=== PATIENT | female | born 1955 | race Caucasian/White ===

== ENCOUNTER 2017-08-05 13:55 | Inpatient (IN) | payer OTHER ==
[~2017-08-05] VITALS: Ht 175.3 cm; Wt 232.0 kg
[2017-08-05] MEDS ORDERED: ASPirin 81 mg TAB PO ONE (14:15)
[2017-08-05 14:43] LABS: Basophils # (auto) 0.1 uL; Basophils % (auto) 0.7 % (0.0-2.0); Eosinophils # (auto) 0 uL; Eosinophils % (auto) 0.5 % (0.0-7.0); Hematocrit 37.5 % (36.0-46.0); Hemoglobin 11.8 g/dL (12.2-16.2); Lymphocytes # (auto) 1.2 uL; Lymphocytes % (auto) 12.3 % (10.0-50.0); Mean Corpuscular Hemoglobin 28.2 pg (28.0-32.0); Mean Corpuscular Hgb Conc. 31.5 g/dL (32.0-36.0); Mean Corpuscular Volume 89.5 fL (80.0-100.0); Mean Platelet Volume 8.1 fL (6.9-10.8); Monocytes # (auto) 0.6 uL; Monocytes % (auto) 5.6 % (0.0-12.0); Neutrophils % (auto) 80.9 % (37.0-80.0); Platelet Count (auto) 205 10^3/uL (140-450); Red Cell Distribution Width 14.8 % (11.8-14.3); White Blood Cell 9.9 10^3/uL (4.4-10.8)
[2017-08-05 15:02] LABS: INR 0.93 (0.9-1.15); Partial Thromboplastin Time 24.8 sec (22.64-33.71); Prothrombin Time 10.1 sec (9.37-12.3)
[2017-08-05 15:04] LABS: B-Type Natriuretic Peptide 456.08 pg/mL (0-100)
[2017-08-05 15:06] LABS: Albumin 2.7 g/dL (3.4-5.0); BUN/Creatinine Ratio 41.8; Bilirubin, Total 0.4 mg/dL (0.2-1.0); Calcium 9.3 mg/dL (8.5-10.1); Magnesium 2.5 mg/dL (1.6-2.6); Total Protein 8.2 g/dL (6.4-8.2)
[2017-08-05 15:07] LABS: Temperature: 23.1 C (20.0-25.0)
[2017-08-05 15:22] LABS: Allen Test Yes; Base Excess 0.6 mmol/L (-2.0-2.0); Blood 02Sat 84.3 % (96-100); Blood COHb 1.3 % (0.5-1.5); Blood MetHb 0.3 % (0.0-1.5); HCO3 30.8 mmol/L (22-26.0); HHb 15.4 % (0.0-5.0); MODE NASAL CANNULA; PCO2 80.7 mmHg (35.0-45.0); PCO2(T) 80.7 mmHg (35.0-45.0); PO2 51.6 mmHg (80.0-100.0); PO2(T) 51.6 mmHg (80.0-100.0); Sample Type Arterial; pH 7.199 (7.350-7.450)
[2017-08-05] MEDS ORDERED: MORPHINE SULF INJ 2 MG/ML SYRINGE 1ML IV PRN ×2 (15:45)
[2017-08-05] MEDS ORDERED: ACETAMINOPHEN 325 MG TAB PO PRN (15:45)
[2017-08-05] MEDS ORDERED: TEMAZEPAM 15 MG CAP PO PRN (15:45)
[2017-08-05] MEDS ORDERED: NITROGLYCERIN 0.4 MG SL TAB SL PRN (15:45)
[2017-08-05] MEDS ORDERED: ONDANSETRON HCL 4 MG/2 ML VIAL IV PRN (15:45)
[2017-08-05] MEDS ORDERED: DOCUSATE SOD 100 MG CAP PO PRN (15:45)
[2017-08-05] MEDS ORDERED: ATEN50TA PO (16:07)
[2017-08-05] MEDS ORDERED: CETI10TA80 PO (16:07)
[2017-08-05] MEDS ORDERED: DOXE25CA2 PO (16:07)
[2017-08-05] MEDS ORDERED: AMLO5TAB2 PO (16:07)
[2017-08-05] MEDS ORDERED: INSREG3 SUBCUT (16:07)
[2017-08-05] MEDS ORDERED: INSDRIP SUBCUT (16:07)
[2017-08-05] MEDS ORDERED: SIMV10TA73 PO (16:07)
[2017-08-05] MEDS ORDERED: MONT10TA34 PO (16:07)
[2017-08-05] MEDS ORDERED: MULTIPLE VITAMIN TAB PO ONE (16:15)
[2017-08-05] MEDS ORDERED: FAMOTIDINE 20 MG TAB PO ONE (16:15)
[2017-08-05] MEDS ORDERED: VANCOMYCIN PER PHARMACY 0 MG IV SCH (16:15)
[2017-08-05] MEDS ORDERED: LEVOFLOXACIN 250MG 50 ML IV ONE (16:15)
[2017-08-05] MEDS ORDERED: ENOXAPARIN SOD 40 MG/0.4 ML SYRINGE SC ONE (16:15)
[2017-08-05] MEDS ORDERED: FUROSEMIDE 40 MG/4 ML VIAL IV ONE (16:15)
[2017-08-05] MEDS ORDERED: DEXTROSE (50%) 50ML SYRG IV PRN (16:15)
[2017-08-05] MEDS: FAMOTIDINE 20 MG TAB PO SCH (16:20)
[2017-08-05] MEDS: POTASSIUM CHL 10 Meq TABLET PO SCH (16:21)
[2017-08-05] MEDS ORDERED: amLODIPine BESYLATE 5 MG TAB PO ONE (16:30)
[2017-08-05] MEDS: InsuLIN REG 1unit/0.01ml Soln (100units/ml) SC SCH ×2 (16:37→22:11)
[2017-08-05] MEDS: ACCU-CHEK COMFORT CURVE STRIP VI SCH ×2 (16:37→22:06)
[2017-08-05] MEDS: FUROSEMIDE 40 MG/4 ML VIAL IV SCH (16:49)
[2017-08-05] MEDS ORDERED: VANCOMYCIN 1,500 MG in SODIUM CHL 0.9% 250 ML IV SCH (18:00)
[2017-08-05] MEDS: INSULIN NPH Isophane (HUMAN) 1unit/0.01ml Susp(100units/ml) SC SCH (18:00)
[2017-08-05 18:27] VITALS: BP 103/61
[2017-08-05 18:39] LABS: Allen Test Yes; Base Excess 1.2 mmol/L (-2.0-2.0); Blood 02Sat 88.6 % (96-100); Blood MetHb 0.3 % (0.0-1.5); HCO3 30.7 mmol/L (22-26.0); HHb 11.3 % (0.0-5.0); MODE HIGH FLOW; O2Hb 87.4 % (94.0-97.0); PCO2 75.4 mmHg (35.0-45.0); PCO2(T) 75.4 mmHg (35.0-45.0); PO2 56.8 mmHg (80.0-100.0); PO2(T) 56.8 mmHg (80.0-100.0); Room 1009-ERT; Sample Type Arterial; pH 7.228 (7.350-7.450)
[2017-08-05] MEDS: ALBUTEROL SULF 2.5 MG/0.5ML(0.5%) NEB SOLN NEB SCH (19:03)
[2017-08-05] MEDS: IPRATROPIUM BROM 0.5 MG/2.5ML INH SOL NEB SCH (19:03)
[2017-08-05] MEDS: VANCOMYCIN 1,500 MG in D5W 5% 250 ML IV SCH (19:38)
[2017-08-05 19:46] VITALS: BP 103/61
[2017-08-05] MEDS: ATENOLOL 25 MG TAB PO SCH (22:00)
[2017-08-05] MEDS ORDERED: ATORVASTATIN 20 MG TAB PO SCH (22:00)
[2017-08-05] MEDS ORDERED: DOXEPIN 25 MG PO SCH (22:00)
[2017-08-05] MEDS: SODIUM CHLOR 0.9% PF (SALINE LOCK) 10ML VIAL IV SCH (22:03)
[2017-08-05 22:05] VITALS: BP 119/57
[2017-08-05] MEDS: MONTELUKAST SODIUM 10 MG TAB PO SCH (22:12)
[2017-08-05 22:20] LABS: Allen Test Yes; Base Excess 0.7 mmol/L (-2.0-2.0); Blood COHb 0.9 % (0.5-1.5); Blood MetHb 0.4 % (0.0-1.5); HCO3 29.2 mmol/L (22-26.0); HHb 9.9 % (0.0-5.0); MODE HIGH FLOW; O2Hb 88.8 % (94.0-97.0); PCO2 66.3 mmHg (35.0-45.0); PCO2(T) 66.3 mmHg (35.0-45.0); PO2 62.1 mmHg (80.0-100.0); PO2(T) 62.1 mmHg (80.0-100.0); Room 1009-ERT; Sample Type Arterial; pH 7.261 (7.350-7.450)
[2017-08-06] VITALS (7 sets, daily range): BP systolic 107–137; BP diastolic 52–69
[2017-08-06] MEDS: IPRATROPIUM BROM 0.5 MG/2.5ML INH SOL NEB SCH ×4 (00:17→18:48)
[2017-08-06] MEDS: ALBUTEROL SULF 2.5 MG/0.5ML(0.5%) NEB SOLN NEB SCH ×4 (00:18→18:48)
[2017-08-06] MEDS: HYDROcodone-ACET 5/325MG TAB PO PRN ×3 (01:24→18:30)
[2017-08-06] MEDS: FAMOTIDINE 20 MG TAB PO SCH ×2 (04:20→16:25)
[2017-08-06] MEDS: POTASSIUM CHL 10 Meq TABLET PO SCH ×2 (04:21→16:25)
[2017-08-06 05:54] LABS: Basophils # (auto) 0.1 uL; Eosinophils # (auto) 0.1 uL; Eosinophils % (auto) 0.9 % (0.0-7.0); Hematocrit 34.2 % (36.0-46.0); Hemoglobin 10.7 g/dL (12.2-16.2); Lymphocytes # (auto) 1.1 uL; Lymphocytes % (auto) 13.8 % (10.0-50.0); Mean Corpuscular Hgb Conc. 31.4 g/dL (32.0-36.0); Mean Platelet Volume 8.7 fL (6.9-10.8); Monocytes # (auto) 0.5 uL; Monocytes % (auto) 5.9 % (0.0-12.0); Neutrophils # (auto) 6.3 uL; Neutrophils % (auto) 78.4 % (37.0-80.0); Platelet Count (auto) 174 10^3/uL (140-450); Red Cell Distribution Width 14.9 % (11.8-14.3)
[2017-08-06] MEDS: FUROSEMIDE 40 MG/4 ML VIAL IV SCH ×2 (06:03→18:25)
[2017-08-06] MEDS: SODIUM CHLOR 0.9% PF (SALINE LOCK) 10ML VIAL IV SCH ×3 (06:03→22:10)
[2017-08-06] MEDS: ACCU-CHEK COMFORT CURVE STRIP VI SCH ×4 (06:03→22:09)
[2017-08-06] MEDS: InsuLIN REG 1unit/0.01ml Soln (100units/ml) SC SCH ×4 (06:12→22:10)
[2017-08-06] MEDS: INSULIN NPH Isophane (HUMAN) 1unit/0.01ml Susp(100units/ml) SC SCH ×2 (06:12→18:29)
[2017-08-06 06:26] LABS: Potassium 4.6 mmol/L (3.5-5.1)
[2017-08-06 06:38] LABS: Albumin 2.2 g/dL (3.4-5.0); BUN/Creatinine Ratio 42.4; Bilirubin, Total 0.5 mg/dL (0.2-1.0); Calcium 8.8 mg/dL (8.5-10.1); Total Protein 6.8 g/dL (6.4-8.2)
[2017-08-06 08:08] LABS: Allen Test Yes; Base Excess 2.1 mmol/L (-2.0-2.0); Blood 02Sat 88.4 % (96-100); Blood COHb 0.8 % (0.5-1.5); Blood MetHb 0.3 % (0.0-1.5); HCO3 29.9 mmol/L (22-26.0); HHb 11.5 % (0.0-5.0); MODE HIGH FLOW; O2Hb 87.4 % (94.0-97.0); PCO2 63.1 mmHg (35.0-45.0); PCO2(T) 63.1 mmHg (35.0-45.0); PO2 57.3 mmHg (80.0-100.0); PO2(T) 57.3 mmHg (80.0-100.0); Room 1009-ERT; Sample Type Arterial; pH 7.294 (7.350-7.450)
[2017-08-06] MEDS ORDERED: LORATADINE 10 MG TAB PO PRN (10:00)
[2017-08-06] MEDS ORDERED: LEVOFLOXACIN 250MG 50 ML IV SCH (10:00)
[2017-08-06] MEDS ORDERED: amLODIPine BESYLATE 5 MG TAB PO SCH (10:00)
[2017-08-06] MEDS: ENOXAPARIN SOD 40 MG/0.4 ML SYRINGE SC SCH (10:34)
[2017-08-06] MEDS: MULTIPLE VITAMIN TAB PO SCH (10:34)
[2017-08-06] MEDS: VANCOMYCIN 1,500 MG in D5W 5% 250 ML IV SCH (12:35)
[2017-08-06] MEDS ORDERED: DOXEPIN HCL 25 MG CAPSULE PO SCH (17:00)
[2017-08-06] MEDS: DOXEPIN HCL 25 MG CAPSULE PO SCH (18:00)
[2017-08-06] MEDS ORDERED: MONTELUKAST SODIUM 10 MG TAB ONE (21:58)
[2017-08-06] MEDS ORDERED: ATENOLOL 50 MG TAB ONE (21:58)
[2017-08-06] MEDS: MONTELUKAST SODIUM 10 MG TAB PO SCH (22:08)
[2017-08-06] MEDS: ATORVASTATIN 20 MG TAB PO SCH (22:08)
[2017-08-06] MEDS: ATENOLOL 25 MG TAB PO SCH (22:13)
[2017-08-07] VITALS (7 sets, daily range): BP systolic 114–124; BP diastolic 53–68
[2017-08-07] MEDS: ALBUTEROL SULF 2.5 MG/0.5ML(0.5%) NEB SOLN NEB SCH ×4 (00:01→18:23)
[2017-08-07] MEDS: IPRATROPIUM BROM 0.5 MG/2.5ML INH SOL NEB SCH ×4 (00:01→18:23)
[2017-08-07] MEDS: FAMOTIDINE 20 MG TAB PO SCH ×2 (05:08→16:17)
[2017-08-07] MEDS: POTASSIUM CHL 10 Meq TABLET PO SCH ×2 (05:09→16:17)
[2017-08-07] MEDS: VANCOMYCIN 1,500 MG in D5W 5% 250 ML IV SCH (05:47)
[2017-08-07] MEDS: FUROSEMIDE 40 MG/4 ML VIAL IV SCH ×2 (05:48→18:04)
[2017-08-07] MEDS: ACCU-CHEK COMFORT CURVE STRIP VI SCH ×4 (05:50→22:15)
[2017-08-07] MEDS: SODIUM CHLOR 0.9% PF (SALINE LOCK) 10ML VIAL IV SCH ×3 (05:50→21:34)
[2017-08-07] MEDS: InsuLIN REG 1unit/0.01ml Soln (100units/ml) SC SCH ×4 (06:29→21:47)
[2017-08-07] MEDS: INSULIN NPH Isophane (HUMAN) 1unit/0.01ml Susp(100units/ml) SC SCH ×2 (06:29→18:04)
[2017-08-07 09:40] LABS: Albumin 2.3 g/dL (3.4-5.0); BUN/Creatinine Ratio 39.6; Calcium 8.5 mg/dL (8.5-10.1); Potassium 4.4 mmol/L (3.5-5.1)
[2017-08-07 09:43] LABS: Bilirubin, Total 0.5 mg/dL (0.2-1.0); Total Protein 7.1 g/dL (6.4-8.2)
[2017-08-07] MEDS ORDERED: LORATADINE 10 MG TAB PO SCH (10:00)
[2017-08-07] MEDS ORDERED: ATENOLOL 50 MG TAB PO SCH (10:00)
[2017-08-07] MEDS ORDERED: MONTELUKAST SODIUM 10 MG TAB PO SCH (10:00)
[2017-08-07] MEDS: MULTIPLE VITAMIN TAB PO SCH (10:08)
[2017-08-07] MEDS: LEVOFLOXACIN 750MG 150 ML IV SCH (10:08)
[2017-08-07] MEDS: amLODIPine BESYLATE 5 MG TAB PO SCH (10:09)
[2017-08-07] MEDS: ENOXAPARIN SOD 40 MG/0.4 ML SYRINGE SC SCH (10:09)
[2017-08-07 10:15] LABS: Basophils # (auto) 0.1 uL; Basophils % (auto) 0.7 % (0.0-2.0); Eosinophils # (auto) 0.1 uL; Eosinophils % (auto) 1.7 % (0.0-7.0); Hematocrit 35.5 % (36.0-46.0); Hemoglobin 11.2 g/dL (12.2-16.2); Lymphocytes # (auto) 1.4 uL; Lymphocytes % (auto) 15.5 % (10.0-50.0); Mean Corpuscular Hgb Conc. 31.4 g/dL (32.0-36.0); Mean Corpuscular Volume 89.2 fL (80.0-100.0); Mean Platelet Volume 8.3 fL (6.9-10.8); Monocytes # (auto) 0.5 uL; Monocytes % (auto) 6.1 % (0.0-12.0); Neutrophils # (auto) 6.6 uL; Platelet Count (auto) 182 10^3/uL (140-450); Red Cell Distribution Width 14.9 % (11.8-14.3); White Blood Cell 8.7 10^3/uL (4.4-10.8)
[2017-08-07] MEDS: DOXEPIN HCL 25 MG CAPSULE PO SCH (18:04)
[2017-08-07] MEDS: ATORVASTATIN 20 MG TAB PO SCH (21:34)
[2017-08-07] MEDS: MONTELUKAST SODIUM 10 MG TAB PO SCH (21:34)
[2017-08-07] MEDS: ATENOLOL 25 MG TAB PO SCH (21:35)
[2017-08-08 02:38] LABS: Allen Test Yes; Base Excess 2.9 mmol/L (-2.0-2.0); Blood 02Sat 88.4 % (96-100); Blood COHb 0.3 % (0.5-1.5); Blood MetHb 0.4 % (0.0-1.5); HCO3 33.1 mmol/L (22-26.0); HHb 11.5 % (0.0-5.0); MODE HIGH FLOW; O2Hb 87.8 % (94.0-97.0); PCO2 85.7 mmHg (35.0-45.0); PCO2(T) 85.7 mmHg (35.0-45.0); PO2 60.4 mmHg (80.0-100.0); PO2(T) 60.4 mmHg (80.0-100.0); Room 0266D; Sample Type Arterial; pH 7.205 (7.350-7.450)
[2017-08-08] MEDS: FUROSEMIDE 40 MG/4 ML VIAL IV SCH ×2 (05:05→18:15)
[2017-08-08] MEDS: POTASSIUM CHL 10 Meq TABLET PO SCH ×2 (05:05→17:10)
[2017-08-08] MEDS: FAMOTIDINE 20 MG TAB PO SCH ×2 (05:06→17:10)
[2017-08-08] MEDS: SODIUM CHLOR 0.9% PF (SALINE LOCK) 10ML VIAL IV SCH ×3 (05:51→22:00)
[2017-08-08] MEDS: ACCU-CHEK COMFORT CURVE STRIP VI SCH ×4 (05:51→22:00)
[2017-08-08] MEDS: INSULIN NPH Isophane (HUMAN) 1unit/0.01ml Susp(100units/ml) SC SCH ×2 (05:59→18:40)
[2017-08-08] MEDS: InsuLIN REG 1unit/0.01ml Soln (100units/ml) SC SCH ×4 (05:59→22:00)
[2017-08-08] MEDS: ALBUTEROL SULF 2.5 MG/0.5ML(0.5%) NEB SOLN NEB SCH ×4 (07:04→18:19)
[2017-08-08] MEDS: IPRATROPIUM BROM 0.5 MG/2.5ML INH SOL NEB SCH ×4 (07:04→18:19)
[2017-08-08 07:12] LABS: Basophils # (auto) 0 uL; Basophils % (auto) 0.4 % (0.0-2.0); Eosinophils # (auto) 0.1 uL; Eosinophils % (auto) 1.4 % (0.0-7.0); Hematocrit 34.2 % (36.0-46.0); Hemoglobin 10.8 g/dL (12.2-16.2); Lymphocytes % (auto) 12.9 % (10.0-50.0); Mean Corpuscular Hemoglobin 28.4 pg (28.0-32.0); Mean Corpuscular Hgb Conc. 31.6 g/dL (32.0-36.0); Mean Platelet Volume 8.9 fL (6.9-10.8); Monocytes # (auto) 0.6 uL; Monocytes % (auto) 7.4 % (0.0-12.0); Neutrophils % (auto) 77.9 % (37.0-80.0); Nucleated Red Blood Cells % 0.1 %; Platelet Count (auto) 156 10^3/uL (140-450); Red Cell Distribution Width 14.8 % (11.8-14.3); White Blood Cell 7.7 10^3/uL (4.4-10.8)
[2017-08-08 07:23] LABS: Calcium 8.6 mg/dL (8.5-10.1); Potassium 4.2 mmol/L (3.5-5.1)
[2017-08-08 07:26] LABS: Albumin 2.3 g/dL (3.4-5.0); BUN/Creatinine Ratio 38.3
[2017-08-08 07:29] LABS: Bilirubin, Total 0.4 mg/dL (0.2-1.0); Total Protein 7.1 g/dL (6.4-8.2)
[2017-08-08 08:00] VITALS: BP 128/60
[2017-08-08] MEDS: HYDROcodone-ACET 5/325MG TAB PO PRN ×3 (08:27→20:27)
[2017-08-08] MEDS: MULTIPLE VITAMIN TAB PO SCH (10:06)
[2017-08-08] MEDS: LEVOFLOXACIN 750MG 150 ML IV SCH (10:06)
[2017-08-08] MEDS: ENOXAPARIN SOD 40 MG/0.4 ML SYRINGE SC SCH (10:07)
[2017-08-08] MEDS: amLODIPine BESYLATE 5 MG TAB PO SCH (10:07)
[2017-08-08 12:00] VITALS: BP 116/54
[2017-08-08 16:00] VITALS: BP 110/58
[2017-08-08] MEDS: PRO-STAT 64 30ML PO SCH (18:00)
[2017-08-08] MEDS: DOXEPIN HCL 25 MG CAPSULE PO SCH (18:16)
[2017-08-08 18:27] VITALS: BP 110/58
[2017-08-08 20:00] VITALS: BP 121/63
[2017-08-08] MEDS: MONTELUKAST SODIUM 10 MG TAB PO SCH (22:52)
[2017-08-08] MEDS: ATENOLOL 25 MG TAB PO SCH (22:52)
[2017-08-08] MEDS: ATORVASTATIN 20 MG TAB PO SCH (22:52)
[2017-08-09] VITALS (8 sets, daily range): BP systolic 105–140; BP diastolic 48–66
[2017-08-09] MEDS: FAMOTIDINE 20 MG TAB PO SCH ×2 (04:20→16:29)
[2017-08-09] MEDS: POTASSIUM CHL 10 Meq TABLET PO SCH ×2 (04:21→16:29)
[2017-08-09] MEDS: FUROSEMIDE 40 MG/4 ML VIAL IV SCH (06:06)
[2017-08-09] MEDS: SODIUM CHLOR 0.9% PF (SALINE LOCK) 10ML VIAL IV SCH ×3 (06:06→21:47)
[2017-08-09] MEDS: ACCU-CHEK COMFORT CURVE STRIP VI SCH ×4 (06:06→21:46)
[2017-08-09] MEDS: IPRATROPIUM BROM 0.5 MG/2.5ML INH SOL NEB SCH ×4 (06:50→19:27)
[2017-08-09] MEDS: ALBUTEROL SULF 2.5 MG/0.5ML(0.5%) NEB SOLN NEB SCH ×4 (06:50→19:28)
[2017-08-09] MEDS: InsuLIN REG 1unit/0.01ml Soln (100units/ml) SC SCH ×4 (07:07→21:46)
[2017-08-09] MEDS: INSULIN NPH Isophane (HUMAN) 1unit/0.01ml Susp(100units/ml) SC SCH ×2 (07:07→17:56)
[2017-08-09] MEDS: HYDROcodone-ACET 5/325MG TAB PO PRN (08:00)
[2017-08-09] MEDS: PRO-STAT 64 30ML PO SCH ×2 (08:00→17:56)
[2017-08-09] MEDS: LEVOFLOXACIN 750MG 150 ML IV SCH (10:21)
[2017-08-09] MEDS: MULTIPLE VITAMIN TAB PO SCH (10:21)
[2017-08-09] MEDS: amLODIPine BESYLATE 5 MG TAB PO SCH (10:22)
[2017-08-09] MEDS: ENOXAPARIN SOD 40 MG/0.4 ML SYRINGE SC SCH (10:22)
[2017-08-09] MEDS: DOXEPIN HCL 25 MG CAPSULE PO SCH (17:55)
[2017-08-09] MEDS ORDERED: ATENOLOL 50 MG TAB ONE (21:38)
[2017-08-09] MEDS: ATORVASTATIN 20 MG TAB PO SCH (21:45)
[2017-08-09] MEDS: MONTELUKAST SODIUM 10 MG TAB PO SCH (21:45)
[2017-08-09] MEDS: ATENOLOL 25 MG TAB PO SCH (21:46)
[2017-08-10] VITALS (10 sets, daily range): BP systolic 111–144; BP diastolic 51–65
[2017-08-10] MEDS: IPRATROPIUM BROM 0.5 MG/2.5ML INH SOL NEB SCH ×4 (00:48→19:18)
[2017-08-10] MEDS: ALBUTEROL SULF 2.5 MG/0.5ML(0.5%) NEB SOLN NEB SCH ×4 (00:48→19:18)
[2017-08-10] MEDS: FAMOTIDINE 20 MG TAB PO SCH ×2 (04:51→10:38)
[2017-08-10] MEDS: POTASSIUM CHL 10 Meq TABLET PO SCH ×2 (04:51→10:38)
[2017-08-10 05:56] LABS: Basophils # (auto) 0 uL; Basophils % (auto) 0.6 % (0.0-2.0); Eosinophils # (auto) 0.1 uL; Eosinophils % (auto) 1.5 % (0.0-7.0); Hematocrit 32.7 % (36.0-46.0); Hemoglobin 10.4 g/dL (12.2-16.2); Lymphocytes % (auto) 12.2 % (10.0-50.0); Mean Corpuscular Hemoglobin 28.5 pg (28.0-32.0); Mean Corpuscular Hgb Conc. 31.7 g/dL (32.0-36.0); Mean Corpuscular Volume 89.7 fL (80.0-100.0); Monocytes # (auto) 0.6 uL; Monocytes % (auto) 8.2 % (0.0-12.0); Neutrophils # (auto) 6.1 uL; Neutrophils % (auto) 77.5 % (37.0-80.0); Nucleated Red Blood Cells % 0.1 %; Platelet Count (auto) 148 10^3/uL (140-450); Red Cell Distribution Width 14.5 % (11.8-14.3); White Blood Cell 7.9 10^3/uL (4.4-10.8)
[2017-08-10] MEDS: ACCU-CHEK COMFORT CURVE STRIP VI SCH ×4 (06:02→22:00)
[2017-08-10] MEDS: SODIUM CHLOR 0.9% PF (SALINE LOCK) 10ML VIAL IV SCH ×3 (06:02→22:56)
[2017-08-10] MEDS: InsuLIN REG 1unit/0.01ml Soln (100units/ml) SC SCH ×4 (06:07→22:30)
[2017-08-10] MEDS: INSULIN NPH Isophane (HUMAN) 1unit/0.01ml Susp(100units/ml) SC SCH ×2 (06:08→18:00)
[2017-08-10 06:25] LABS: Albumin 2.3 g/dL (3.4-5.0); BUN/Creatinine Ratio 43.8; Bilirubin, Total 0.5 mg/dL (0.2-1.0); Calcium 8.4 mg/dL (8.5-10.1); Potassium 4.7 mmol/L (3.5-5.1); Total Protein 6.9 g/dL (6.4-8.2)
[2017-08-10] MEDS: HYDROcodone-ACET 5/325MG TAB PO PRN (07:04)
[2017-08-10] MEDS: PRO-STAT 64 30ML PO SCH ×2 (08:00→17:48)
[2017-08-10] MEDS: FUROSEMIDE 40 MG/4 ML VIAL IV SCH (10:37)
[2017-08-10] MEDS: LEVOFLOXACIN 750MG 150 ML IV SCH (10:37)
[2017-08-10] MEDS: MULTIPLE VITAMIN TAB PO SCH (10:38)
[2017-08-10] MEDS: ENOXAPARIN SOD 40 MG/0.4 ML SYRINGE SC SCH (10:39)
[2017-08-10] MEDS: amLODIPine BESYLATE 5 MG TAB PO SCH (10:39)
[2017-08-10] MEDS: DOXEPIN HCL 25 MG CAPSULE PO SCH (17:45)
[2017-08-10] MEDS: ATENOLOL 25 MG TAB PO SCH (22:00)
[2017-08-10] MEDS: ATORVASTATIN 20 MG TAB PO SCH (22:57)
[2017-08-10] MEDS: MONTELUKAST SODIUM 10 MG TAB PO SCH (22:57)
[2017-08-10] MEDS ORDERED: ATENOLOL 50 MG TAB ONE ×3 (23:02→23:40)
[2017-08-11] MEDS: ALBUTEROL SULF 2.5 MG/0.5ML(0.5%) NEB SOLN NEB SCH ×4 (00:25→18:00)
[2017-08-11] MEDS: IPRATROPIUM BROM 0.5 MG/2.5ML INH SOL NEB SCH ×4 (00:25→18:00)
[2017-08-11 04:00] VITALS: BP 131/65
[2017-08-11] MEDS: POTASSIUM CHL 10 Meq TABLET PO SCH ×2 (04:50→16:52)
[2017-08-11] MEDS: FAMOTIDINE 20 MG TAB PO SCH ×2 (04:50→16:53)
[2017-08-11] MEDS: SODIUM CHLOR 0.9% PF (SALINE LOCK) 10ML VIAL IV SCH ×3 (06:00→22:22)
[2017-08-11] MEDS: ACCU-CHEK COMFORT CURVE STRIP VI SCH ×4 (07:11→22:22)
[2017-08-11] MEDS: INSULIN NPH Isophane (HUMAN) 1unit/0.01ml Susp(100units/ml) SC SCH ×2 (07:11→18:00)
[2017-08-11] MEDS: InsuLIN REG 1unit/0.01ml Soln (100units/ml) SC SCH ×4 (07:12→22:23)
[2017-08-11 08:00] VITALS: BP 122/57
[2017-08-11] MEDS: PRO-STAT 64 30ML PO SCH ×2 (08:00→18:00)
[2017-08-11] MEDS: LEVOFLOXACIN 750MG 150 ML IV SCH (10:35)
[2017-08-11] MEDS: FUROSEMIDE 40 MG/4 ML VIAL IV SCH (10:36)
[2017-08-11] MEDS: ENOXAPARIN SOD 40 MG/0.4 ML SYRINGE SC SCH (10:36)
[2017-08-11] MEDS: MULTIPLE VITAMIN TAB PO SCH (10:36)
[2017-08-11] MEDS: amLODIPine BESYLATE 5 MG TAB PO SCH (10:37)
[2017-08-11 11:50] VITALS: BP 113/67
[2017-08-11 15:53] VITALS: BP 106/51
[2017-08-11] MEDS: DOXEPIN HCL 25 MG CAPSULE PO SCH (18:00)
[2017-08-11 19:50] VITALS: BP 118/59
[2017-08-11] MEDS: ATENOLOL 25 MG TAB PO SCH (22:00)
[2017-08-11] MEDS: MONTELUKAST SODIUM 10 MG TAB PO SCH (22:22)
[2017-08-11] MEDS: ATORVASTATIN 20 MG TAB PO SCH (22:22)
[2017-08-11 23:42] VITALS: BP 118/59
[2017-08-12] VITALS: BP 127/58
[2017-08-12] MEDS: ALBUTEROL SULF 2.5 MG/0.5ML(0.5%) NEB SOLN NEB SCH (00:13)
[2017-08-12] MEDS: IPRATROPIUM BROM 0.5 MG/2.5ML INH SOL NEB SCH (00:13)
== END 2017-08-12 01:57 | disposition short-term general hospital (02) | DRG 871 ==
LOC: ER 13:55 → EDBD 13:55 → TELE 13:56 → DOU IN ICU 08-06 14:26
PROVIDERS: ADMIT Internal Medicine; ATTEND Internal Medicine
DX: A41.9 Sepsis, unspecified organism (principal); J96.01 Acute respiratory failure with hypoxia; E43 Unspecified severe protein-calorie malnutrition; J96.02 Acute respiratory failure with hypercapnia; I50.43 Acute on chronic combined systolic (congestive) and diastolic (congestive) heart failure; E87.2 Acidosis; E10.21 Type 1 diabetes mellitus with diabetic nephropathy; J18.9 Pneumonia, unspecified organism; E10.40 Type 1 diabetes mellitus with diabetic neuropathy, unspecified; I13.0 Hypertensive heart and chronic kidney disease with heart failure and stage 1 through stage 4 chronic kidney disease, or unspecified chronic kidney disease; J44.0 Chronic obstructive pulmonary disease with (acute) lower respiratory infection; J44.1 Chronic obstructive pulmonary disease with (acute) exacerbation; E66.2 Morbid (severe) obesity with alveolar hypoventilation; Z68.45 Body mass index [BMI] 70 or greater, adult; L03.90 Cellulitis, unspecified; N18.3 Chronic kidney disease, stage 3 (moderate); E66.01 Morbid (severe) obesity due to excess calories; E10.22 Type 1 diabetes mellitus with diabetic chronic kidney disease; D63.8 Anemia in other chronic diseases classified elsewhere; E78.5 Hyperlipidemia, unspecified; F32.9 Major depressive disorder, single episode, unspecified; F41.9 Anxiety disorder, unspecified; G47.33 Obstructive sleep apnea (adult) (pediatric); I87.8 Other specified disorders of veins; I89.0 Lymphedema, not elsewhere classified; Z79.4 Long term (current) use of insulin; Z82.49 Family history of ischemic heart disease and other diseases of the circulatory system; Z90.710 Acquired absence of both cervix and uterus; Z83.3 Family history of diabetes mellitus; Z88.0 Allergy status to penicillin; Z80.9 Family history of malignant neoplasm, unspecified
CPT/HCPCS: 36415; 36600; 51702; 71010; 80053; 82805; 82962; 83036; 83605; 83735; 83880; 84443; 84484; 85025; 85379; 85610; 85730; 87040; 87077; 87081; 87086; 87186; 93005; 93306; 94640; 96365; 96372; 99291; A4615; J1815; J1956; J7060